=== PATIENT | female | born 1935 | race Caucasian/White ===

== ENCOUNTER → 2017-08-03 10:45 | Outpatient (CLI) | payer MEDICARE, SELFPAY ==
--- NOTE | 2017-08-03 10:48 | MM_ITS ---
MM Dig screening mamm BI w/CAD CAD Screening ORDERING PHYSICIAN : Titus Wall PATIENT AGE: 81 years GENDER: Female February 2016, December 2014, October INDICATION: Family history. Mother with breast cancer in her 60s. 2 Sisters with breast cancer at 50 and 45 TECHNIQUE: Standard CC and MLO images were obtained. R2 CAD reviewed. FINDINGS: Relatively dense breasts for this age patient. No dominant mass. Dense breast can decrease sensitivity of mammography obscuring densities of significant adenosine no suspicious new areas of concern. Encourage annual follow-up.. Breast Overall architecture is similar to previous studies with No architectural distortion. Vascular calcifications but no suspicious calcifications either IMPRESSION: No significant new findings. Stable mammogram. Dense breasts for age. In view of strong positive family history encourage ongoing annual follow-up even for this age patient BI-RADS Category: 2 Benign Finding(s) RECOMMENDED FOLLOW-UP: 1YR - 1 YEAR FOLLOW-UP (A letter has been sent to the patient regarding results of the study.) A
== END ==
PROVIDERS: Family Provider Internal Medicine Adolescent Medicine; PCP Family Medicine; Visit Provider Family Medicine
DX: Z12.31 Encounter for screening mammogram for malignant neoplasm of breast (principal)
CPT/HCPCS: 77067

== ENCOUNTER → 2019-01-31 10:11 | Outpatient (CLI) | payer MEDICARE, SELFPAY ==
--- NOTE | 2019-01-31 10:14 | MM_ITS ---
PROCEDURE: MM DIG SCREENING MAMM BI W/CAD Patient Age:83Y CLINICAL INDICATION: SCREENING No hormones. No new complaints. Family history: Mother breast cancer in her 60s. Two sisters with breast cancer 50 and 45 years old COMPARISON: DIGMAMMS MAMMOGRAM SCREEN-REINFORCED IRONWORKER N/C from 03/29/2009 [facility] DIGITAL MAMM-SCREEN BILATERAL from 05/17/2010 [facility] DIGITAL MAMM-SCREEN BILATERAL from 05/29/2011 [facility] DIG MAMM-SCREEN SHANTA from 09/17/2012 [facility] DIG MAMM-SCREEN SHANTA from 11/04/2013 [facility] DIG MAMM-SCREEN SHANTA from 12/28/2014 [id number] DIG MAMM-DX UNI ADD VIEWS-RT from 01/12/2015 [facility] DIG MAMM-SCREEN SHANTA from 02/25/2016 [facility] MM Dig screening mamm BI w/CAD from 08/03/2017 TECHNIQUE: Standard CC and MLO images were obtained. R2 CAD reviewed. FINDINGS: Moderately dense heterogeneous breast pattern for this age patient again noted. No unique suspicious nor new areas of concern. No dominant mass nor significant suspicious calcifications. Both breast demonstrate mom vascular calcifications. Scattered other minimal calcifications again noted and can be followed in 1 year . Right breast: no discrete new areas of concern. The heterogeneous slightly nodular appearance in the retroareolar region is similar to studies dating back to 2012, 2011 2011 and may reflects mild stable ductal prominence retroareolar region Left breast: No new areas of concern.. CC view stable unchanged The heterogeneous pattern seen on today's MLO view is similar to 2012, 2013 IMPRESSION: stable bilateral mammogram. No new areas of significant concern. Moderately dense breast for age Bilateral follow-up recommended-and should be emphasized and encouraged particularly in view of strong positive family history BI-RAD Category: 2 Benign Finding(s) FOLLOW-UP: 1YR 1 Year Follow-up (A letter has been sent to the patient regarding results of the study.) Dictated by: Steve Miller MD 02/01/2019 08:12 Electronically signed by Steve Miller MD in [place] 02/01/2019 08:12
== END ==
PROVIDERS: PCP Family Medicine; Visit Provider Family Medicine
DX: Z12.31 Encounter for screening mammogram for malignant neoplasm of breast (principal)
CPT/HCPCS: 77067

== ENCOUNTER → 2020-02-19 12:39 | Outpatient (CLI) | payer MEDICARE, SELFPAY ==
--- NOTE | 2020-02-19 12:45 | MM_ITS ---
PROCEDURE: MM DIG SCREENING MAMM BI W/CAD Digital Breast Tomosynthesis Included CLINICAL INDICATION: SCREENING There is a history of breast cancer patient's mother and 2 sisters. COMPARISON: [facility] MM Dig screening mamm BI w/CAD from 08/03/2017 MG MM DIG SCREENING MAMM BI W/CAD from 01/31/2019 TECHNIQUE: Standard CC and MLO images and 3D Tomosynthesis was obtained. R2 CAD reviewed. FINDINGS: Prominent diffuse somewhat heterogenic fibroglandular densities are seen in the central portions of both breast and the findings are fairly symmetrical and bilateral. There is diffuse arterial calcification in each breast. There are few scattered benign-appearing microcalcifications in each breast as well. There is a mole marker near the axillary tail right breast. There is no new or suspicious lesion in either breast and no suspicious microcalcifications. IMPRESSION: Diffuse breast density with no suspicious lesions seen BI-RAD Category: 2 Benign Finding(s) FOLLOW-UP: 1YR 1 Year Follow-up (A letter has been sent to the patient regarding results of the study.) Dictated by: Dr. Rolo Ascencio MD 02/20/2020 12:17 Dr. Rolo Ascencio MD in [place] 02/20/2020 12:17
== END ==
PROVIDERS: PCP Family Medicine; Visit Provider Family Medicine
DX: Z12.31 Encounter for screening mammogram for malignant neoplasm of breast (principal)
CPT/HCPCS: 77063; 77067